=== PATIENT | male | born 1975 | race Hispanic/Latino ===

== ENCOUNTER 2018-02-08 18:54 | Emergency (ER) | payer BC ==
[~2018-02-08] VITALS: Ht 172.7 cm; Wt 71.2 kg
[2018-02-08] MEDS ORDERED: MULTI-VITAMIN1 EACH (19:14)
[2018-02-08] MEDS ORDERED: IBUPROFEN 600 MG TAB PO STA (19:33)
[2018-02-08] MEDS ORDERED: TETANUS/DIPHTHERIA TOX ADULT 0.5 ML SYR IM ONE (19:45)
== END 2018-02-08 19:48 | disposition home or self-care (01) ==
LOC: FSED 18:54
DX: S61.214A Laceration without foreign body of right ring finger without damage to nail, initial encounter (principal); W45.8XXA Other foreign body or object entering through skin, initial encounter; Y92.008 Other place in unspecified non-institutional (private) residence as the place of occurrence of the external cause
CPT/HCPCS: 90714; 99283